=== PATIENT | female | born 1975 | race Caucasian/White ===

== ENCOUNTER 2018-03-24 13:39 | Emergency (ER) | payer OTHER ==
[2018-03-24] MEDS: Aspirin 81 MG Tab.Chew PO ONE (13:55)
[2018-03-24] MEDS: Nitroglycerin 0.4 MG Tab.SL SL ONE (13:56)
[2018-03-24] MEDS: Iopamidol 755 Mg/ML 100 ML Bottle IV PRN (15:31)
[2018-03-24] MEDS: Sodium Chloride 0.9% 50 ML SDV FLUSH SCH (15:31)
--- NOTE | 2018-03-24 17:24 | CR ---
DATE OF SERVICE: 03/24/18 CLINICAL DATA: chest pain - back pain. PA CHEST: Comparison is made to a prior exam dated 10/03/09. The heart size is normal. The lungs are clear. No pneumothorax. No pleural effusions. No evidence of acute intrathoracic disease. [id number] [facility]
--- NOTE | 2018-03-24 23:03 | ER ---
HISTORY OF PRESENT ILLNESS: A 43-year-old lady here with complaints of discomfort in the right lower chest wall that radiates around to the back. She states that this started yesterday about 5:30 in the evening. She was at a local bar having a social drink with some friends. She states that she has had bowel movements 4 times since then. She currently rates her pain at 4/10. She has not been sweaty. She has not been nauseated. She has not been running a fever. The patient denies any recent falls or injuries. PAST MEDICAL HISTORY: Includes gastric bypass. SURGICAL HISTORY: Also includes appendectomy, cholecystectomy, and multiple C-sections. She has history of a stomach ulcer but that is not giving her any issues recently, and she has had surgery for an umbilical hernia repair. The patient again currently rates her pain at 4/10. CURRENT MEDICATIONS: Celexa. OBJECTIVE: GENERAL APPEARANCE: The patient is awake and alert, in no obvious distress. VITAL SIGNS: Initial blood pressure 160/89, pulse 86, sats are 100% on room air. LUNGS: Clear. CARDIAC: Heart sounds distinct without murmurs. SKIN: Warm and dry. ABDOMEN: Soft and nontender. I cannot reproduce any pain below the right breast with palpation, but this is where the patient is having her discomfort. There is minimal CVA tenderness with percussion on the right side. INITIAL TREATMENT: Four aspirin were given to the patient, followed by one nitro, and she states that nitro did help her pain bringing it down to 1 on a 10 scale. LABORATORY AND IMAGING DATA: An EKG was obtained showing a normal sinus rhythm. Lab work includes a CBC which is normal. A D-dimer is mildly elevated at 632. Comprehensive metabolic panel shows the patient's electrolytes and kidney function are good. Glucose is at 125 hours, AST is 62, alkaline phosphatase is 123. Troponin is negative. UA shows a small amount of occult blood. Chest x-ray is unremarkable. This was followed with a chest CT with PE protocol. The radiologist's report came back as negative. No evidence for a pulmonary artery embolism. DIAGNOSIS: Chest pain on the right side with mild CVA pain, resolved within the patient's stay in the emergency room. TREATMENT PLAN: I advised patient that her heart workup was negative and the workup for a PE was also negative. This leaves us with other possibilities, one could be adhesions and another could be an early stage kidney stone. I advised the patient to go home, take Tylenol as needed for pain, and activity should be as tolerated. She is to increase her liquid intake as well. If her symptoms persist, followup for an ultrasound would be considered. I would do a renal ultrasound if her symptoms do persist over the next few days. CRS/MODL /[id number]
--- NOTE | 2018-03-25 08:19 | CT ---
DATE OF SERVICE: 03/24/18 CLINICAL DATA: chest/back pain. elevated D-dimer. ENHANCED CHEST CT: Multislice acquisition through the chest with IV contrast was performed. No priors. No evidence of PE. No pneumothorax. No pleural effusions. No aortic aneurysm or dissection. The lungs are clear. The heart size is normal. No pericardial effusion. No hilar or mediastinal adenopathy. There are surgical changes involving the stomach and GE junction. IMPRESSION: No acute abnormalities. [id number] [facility]
== END 2018-03-24 16:37 | disposition home or self-care (01) ==
LOC: LB.ED 13:39
DX: R07.89 Other chest pain (principal)
CPT/HCPCS: 36415; 71045; 71260; 80053; 81001; 84484; 85025; 85379; 93005; 99285; A9270; Q9967

== ENCOUNTER 2021-12-12 11:47 | Day surgery (SDC) | payer OTHER ==
[~2021-12-12 11:47] MED LIST: Metoclopramide 10 MG/2 ML SDV IV PRN
[2021-12-12] MEDS: Sodium Chloride 0.9% 1,000 ML IV SCH (12:35)
[2021-12-12] MEDS ORDERED: Propofol 1,000 MG/100 ML SDV ONE (14:30)
== END 2021-12-12 15:45 | disposition home or self-care (01) ==
LOC: LB.SDS 11:47
PROVIDERS: ATTEND Surgery
DX: Z12.11 Encounter for screening for malignant neoplasm of colon (principal); K57.30 Diverticulosis of large intestine without perforation or abscess without bleeding; I10 Essential (primary) hypertension; J45.909 Unspecified asthma, uncomplicated; Z88.0 Allergy status to penicillin; Z88.8 Allergy status to other drugs, medicaments and biological substances
CPT/HCPCS: 45378; J2704; J7030

== ENCOUNTER 2023-09-02 08:13 | Emergency (ER) | payer BC, OTHER ==
[2023-09-02] MEDS ORDERED: Ondansetron 4 MG Tab.DIS PO ONE (08:28)
[2023-09-02 08:48] LABS: HEMATOCRIT 39.8 % (37.0-47.0); HEMOGLOBIN 12.9 g/dL (11.5-16.5); MEAN CORPUSCULAR HEMOGLOBIN 28.4 pg (27.0-32.0); MEAN CORPUSCULAR HGB CONC 32.4 g/dL (31.0-35.0); MEAN PLATELET VOLUME 10.6 fL (6.0-10.0); RED BLOOD CELL COUNT 4.54 M/uL (3.80-5.80); RED CELL DISTRIBUTION WIDTH 14.4 % (11.0-16.0); WHITE BLOOD CELL COUNT,WBC 7.5 K/uL (4.0-11.0)
[2023-09-02 09:02] LABS: A/G RATIO 0.7 (0.8-2.0); ALBUMIN 3.1 g/dL (3.4-5.0); ANION GAP 14.2 mmol/L (5.0-15.0); BILIRUBIN TOTAL 0.6 mg/dL (0.0-1.0); BUN/CREATININE RATIO 6.1 (6-25); CALCIUM 8.9 mg/dL (8.5-10.1); CARBON DIOXIDE,CO2 23.9 mmol/L (21.0-32.0); CREATININE 0.99 mg/dL (0.55-1.02); EST CRCL DRUG DOSING (CG) 73.42 mL/min; POTASSIUM,K 3.1 mmol/L (3.5-5.1); PROTEIN TOTAL,TP 7.5 g/dL (6.4-8.2)
== END 2023-09-02 09:23 | disposition home or self-care (01) ==
LOC: LB.ED 08:13
DX: K52.9 Noninfective gastroenteritis and colitis, unspecified (principal); E87.6 Hypokalemia; Z88.0 Allergy status to penicillin; Z88.8 Allergy status to other drugs, medicaments and biological substances
CPT/HCPCS: 36415; 80053; 83690; 85027; 99283; 99284; Q0162

== ENCOUNTER 2025-06-06 18:33 | Emergency (ER) | payer BC ==
[2025-06-06 19:32] LABS: MEAN PLATELET VOLUME 10.5 fL (6.0-10.0); PLATELET COUNT,PLT 285.0 K/uL (150-500); RED BLOOD CELL COUNT 4.34 M/uL (3.80-5.80); RED CELL DISTRIBUTION WIDTH 15.1 % (11.0-16.0); WHITE BLOOD CELL COUNT,WBC 5.8 K/uL (4.0-11.0)
[2025-06-06 19:50] LABS: A/G RATIO 1.0 (0.8-2.0); ALANINE AMINOTRANSFERASE,ALT 29.0 U/L (12-78); ASPARTATE AMNIOTRANSFERASE,AST 33.0 U/L (15-37); BILIRUBIN TOTAL 0.3 mg/dL (0.0-1.0); BLOOD UREA NITROGEN,BUN 13.0 mg/dL (8-26); CARBON DIOXIDE,CO2 30.5 mmol/L (21.0-32.0); CHLORIDE,CL 103.0 mmol/L (98-107); CREATININE 1.02 mg/dL (0.55-1.02); EST CRCL DRUG DOSING (CG) 69.72 mL/min; ESTIMATED GFR 67.0 mL/min (>60); GLUCOSE RANDOM 107.0 mg/dL (74-100); POTASSIUM,K 3.4 mmol/L (3.5-5.1); PROTEIN TOTAL,TP 7.9 g/dL (6.4-8.2); SODIUM,NA 143.0 mmol/L (136-145); TROPONIN I HIGH SENSITIVITY 7.8 pg/ml (<=60.4)
== END 2025-06-06 21:02 | disposition home or self-care (01) ==
LOC: LB.ED 18:33
DX: T14.8XXA Other injury of unspecified body region, initial encounter (principal); I10 Essential (primary) hypertension; Z88.1 Allergy status to other antibiotic agents; Z88.8 Allergy status to other drugs, medicaments and biological substances; Z79.899 Other long term (current) drug therapy; Z90.49 Acquired absence of other specified parts of digestive tract
CPT/HCPCS: 36415; 80053; 84484; 85027; 93005; 93010; 99283; 99284